=== PATIENT | male | born 1985 | race Caucasian/White ===

== ENCOUNTER → 2025-06-20 22:36 | Outpatient (BNV) | payer OTHER, SELFPAY | PROVIDERS: Visit Provider Radiology Diagnostic Radiology | DX: R07.9 Chest pain, unspecified (principal); R06.09 Other forms of dyspnea; M54.9 Dorsalgia, unspecified; M25.512 Pain in left shoulder; S49.92XA Unspecified injury of left shoulder and upper arm, initial encounter | CPT/HCPCS: 71046; 73030 ==

== ENCOUNTER 2025-06-20 23:05 | Emergency (ER) | payer OTHER, SELFPAY ==
--- NOTE | ~2025-06-20 | XR_ITS ---
CLINICAL HISTORY: pain unknown injury started 2 weeks ago 3 view left shoulder Comparison: None provided Findings: Bones intact. No dislocations. No erosions. No radiopaque foreign body. IMPRESSION: 1. No acute findings This document has been electronically signed by: Stephanie Matute MD on 06/21/2025 00:14:58
--- NOTE | ~2025-06-20 | XR_ITS ---
CLINICAL HISTORY: chest and back pain, intermittent GUERRERO 2 view chest x-ray Comparison: None provided Findings: No consolidation or effusion. Heart size is normal. No acute fracture. IMPRESSION: 1. No acute findings. This document has been electronically signed by: Stephanie Matute MD on 06/21/2025 00:15:02
[2025-06-20 23:13] VITALS: BP 133/94; PULSE 89; RESP 18; TEMP 36.7; O2SAT 97
[2025-06-20 23:47] LABS: Hematocrit 45.0 % (42.0-52.0); Hemoglobin 16.3 g/dl (14.0-18.0); Mean Corpuscular HGB Conc 36.2 g/dl (31.0-36.0); Mean Corpuscular Hemoglobin 32.2 pg (27.0-33.0); Mean Corpuscular Volume 88.9 fL (80.0-98.0); NRBC Abs Auto 0.000 X10*3/uL (0.0-0.012); NRBC Pct Auto 0.0 /100WBC (0.0-0.2); Platelet Count 264 X10*3/uL (160-400); Red Blood Count 5.06 X10*6/uL (4.60-5.80); White Blood Count 10.5 X10*3/uL (4.8-10.8)
[2025-06-21 00:03] LABS: Alanine Aminotransferase 38 U/L (0-40); Albumin Level 4.9 g/dL (3.5-5.0); Alkaline Phosphatase 73 U/L (39-117); Anion Gap 14 (12-20); Aspartate Amino Transferase 34 U/L (5-37); Blood Urea Nitrogen 19 mg/dL (9-16); Calcium 10.0 mg/dL (8.4-10.2); Carbon Dioxide 30 mmol/L (22-29); Chloride 103 mmol/L (96-108); Creatinine Clr Calc Pharmacy 62.6; Estimated Glomerular Filt Rate 46; Potassium 4.6 mmol/L (3.3-5.1); Sodium 142 mmol/L (135-145); Total Protein 8.1 g/dL (6.5-8.0)
[2025-06-21 00:11] LABS: Troponin-I High Sensitivity < 2.7 ng/L (<3.5-35.0)
--- NOTE | 2025-06-21 01:28 | ED_ITS ---
HPI - General Adult General Chief complaint: Extremity Problem Stated complaint: left arm numbness Time Seen by Provider: 06/21/25 00:46 Source: patient Mode of arrival: ambulatory Limitations: no limitations History of Present Illness ED Provider: Matheus BARRON HPI narrative: The patient is a 39-year-old male presenting to the ED for evaluation of left shoulder pain which began gradually and atraumatically approximately 3-4 weeks ago. Patient reports pain originates in his left paraspinal muscles and radiates across his shoulder blade into his shoulder in now over the past few days has been radiating into his left arm with left arm tingling paresthesias. The patient reports pain occasionally becomes sharp and radiates to his chest and then resolves without intervention. The patient denies associated cough, shortness of breath, isolated chest pain, pleurisy, nausea, vomiting, diaphoresis, recent sick contacts, or recent trauma. 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 The patient has not attempted any home medications for his symptoms. Related Data Previous Rx's ?Medication ?Instructions ?Recorded acetaminophen 500 mg capsule 1,000 mg (2 x 500 mg) PO .q8 PRN 06/21/25 fever or pain #30 caps cyclobenzaprine 10 mg tablet 10 mg PO BEDTIME PRN musc le spasm 06/21/25 #7 tabs ibuprofen 600 mg tablet 600 mg PO Q8H PRN fever or p ain 06/21/25 #30 tabs Allergies Allergy/AdvReac Type Severity Reaction Status Date / Time No Known Allergies Allergy Verified 06/20/25 23:15 Review of Systems 2 Review of Systems: Yes all other systems are reviewed and are negative PMFSH Social History Social History Alcohol intake: current Smoked in Last 30 Days: Yes Use of substances other than those prescribed or required for medical reasons: Yes Physical Exam ED Vital Signs: Vital Signs - 24 hr 06/20/25 23:13 Temperature 98.1 F Pulse Rate 89 Respiratory Rate 18 Blood Pressure 133/94 H Pulse Oximetry 97 Oxygen Delivery Method Room Air BMI result Body Mass Index 30.0 CONSTITUTIONAL: The patient appears comfortable, non-toxic, well nourished and in no acute distress. Vital signs as documented. HEAD: Atraumatic, normocephalic. EYES: EOMs grossly intact, pupils equal, conjunctiva clear, no exudate. ENT: Nares patent, no discharge. Airway patent, no audible stridor, visible mucosa is pink and moist without noted lesions. NECK: Trachea is midline, no obvious masses or gross abnormalities. CHEST: Symmetric movement, normal appearance. LUNGS: LS present and CTAB, no w/r/r. Non-labored work of breathing. CARDIAC: Regular Rhythm, S1/S2 appreciated, no murmurs, rubs or gallops. ABDOMEN: Abdomen soft and non-tender x4 quadrants, no palpable masses or organomegaly. : Deferred. BACK: No midline spinous tenderness, no tenderness elicited with palpation of the left scapula. EXTREMITIES: Normal tone, moves all extremities spontaneously without reported pain. Patient reports painful range of motion however is noted to lie comfortably with his arms behind his back and use the affected extremity to get up from the exam stretcher without evidence of discomfort. Welt Wheeler strength 5/5 bilaterally, pain is fully reproduced with pushing against resistance with the upper extremities. Distal CSM is intact, 2+ radial pulse in the affected extremity. No obvious acute injury or deformity noted. NEURO: Alert and oriented x3, CN II-XII appear grossly intact. Cerebellar Functioning grossly intact. No obvious sensory or motor deficits. Speech clear and appropriate. PSYCH: normal affect, appropriate eye contact, fluid speech, with appropriate response to questioning. No reported suicidality or homicidality. SKIN: Warm, dry, color appropriate, normal turgor. No rashes noted. Medical Decision Making Medical Decision Making MDM Narrative: 1:40 AM 06/21/2025 (Teresa BARRON): The patient is a 39-year-old male presenting to the ED for evaluation of left paraspinal thoracic pain radiating through his left scapula and into his left arm for the past 3-4 weeks which is exacerbated by movement and pushing against resistance. The patient's pain occasionally radiates sharply into the chest and then resolves without incident, patient denies any chest pain in the ED. the patient reports yesterday he began experiencing tingling paresthesias of the left arm prompting ED evaluation today. The patient's exam is reassuring, pain is fully reproduced with pushing against resistance with the upper extremities, there is no bony tenderness, no overlying erythema, ecchymosis, or other evidence of injury. The patient's laboratory evaluation is reassuring, troponin negative, no leukocytosis, anemia, electrolyte abnormality, or significant LUIS. The patient's shoulder and chest x-rays are unremarkable. The patient is likely suffering from cervical radiculopathy versus musculoskeletal strain of the left trapezius muscle. Patient will be treated with anti-inflammatories, topical lidocaine patch, and Flexeril. Patient will be discharged with instructions to follow up with PCP for re-evaluation. Patient has been educated on reasons to return to the ED. Admission/Observation Consideration of admission/observation: Escalation of care including admission/observation considered Lab Data MDM Lab Attestation statement: I reviewed the patient's lab results. 06/20/25 23:41 06/20/25 23:41 Labs: Lab Results 06/20/25 Range/Units 23:41 WBC 10.5 (4.8-10.8) X10*3/uL RBC 5.06 (4.60-5.80) X10*6/uL Hgb 16.3 (14.0-18.0) g/dl Hct 45.0 (42.0-52.0) % MCV 88.9 (80.0-98.0) fL MCH 32.2 (27.0-33.0) pg MCHC 36.2 H (31.0-36.0) g/dl RDW 13.1 (11.0-16.0) % Plt Count 264 (160-400) X10*3/uL MPV 9.4 (9.4-12.4) fL Absolute Nucleated RBC 0.000 (0.0-0.012) X10*3/uL Nucleated RBC % (auto) 0.0 (0.0-0.2) /100WBC Sodium 142 (135-145) mmol/L Potassium 4.6 (3.3-5.1) mmol/L Chloride 103 (96-108) mmol/L Carbon Dioxide 30 H (22-29) mmol/L Anion Gap 14 (12-20) BUN 19 H (9-16) mg/dL Creatinine 1.70 H (0.5-1.4) mg/dL Estim Creat Clear Calc 62.6 Estimated GFR 46 Random Glucose 78 (60-115) mg/dL Calcium 10.0 (8.4-10.2) mg/dL Total Bilirubin 0.5 (0.0-1.0) mg/dL AST 34 (5-37) U/L ALT 38 (0-40) U/L Alkaline Phosphatase 73 (39-117) U/L Troponin I High Sens < 2.7 (<3.5-35.0) ng/L Total Protein 8.1 H (6.5-8.0) g/dL Albumin 4.9 (3.5-5.0) g/dL Radiology Impression Discussion of test interpretation with radiology: I have reviewed the radiologist's reading. Radiologist Impression: 2 view chest x-ray Comparison: None provided Findings: No consolidation or effusion. Heart size is normal. No acute fracture. IMPRESSION: 1. No acute findings. This document has been electronically signed by: Stephanie Matute MD on 06/21/2025 00:15:02 3 view left shoulder Comparison: None provided Findings: Bones intact. No dislocations. No erosions. No radiopaque foreign body. IMPRESSION: 1. No acute findings This document has been electronically signed by: Stephanie Matute MD on 06/21/2025 00:14:58 External Record Review External record reviewed: Outpatient record Prescription Management I considered prescription management with: Pain Medication Discharge Plan Discharge Clinical Impression: Musculoskeletal strain, Radiculopathy affecting upper extremity Patient Disposition: Home, Self-Care Instructions: Muscle Strain (ED), Cervical Radiculopathy (ED), Musculoskeletal Pain (ED), Back Pain (ED) Additional Instructions: Thank you for choosing [facility]'s Emergency Department for your care today. Thankfully your laboratory evaluation, x-rays, and exam today are all reassuring and showed no evidence of any acute emergent process requiring admission to the hospital or continued ED observation. It is safe to discharge you home. Your pain today may be related to a strain of your thoracic muscles with subsequent inflammation and/or compression of nerves causing tingling numbness in your left arm. Your pain has been treated with anti-inflammatories, muscle relaxers, and topical analgesics. You should take alternating (staggered) doses of ibuprofen 600mg and Tylenol 1000mg every 4 hours as needed for any additional pain. Please rest the injured area, and apply ice for 20 minutes every hour. Please stay well hydrated and get plenty of rest. As a part of your care plan, you have also been prescribed a muscle relaxer. Please take this medication only for severe pain or spasm that is not relieved by ibuprofen and/or Tylenol. Muscle relaxer medications can carry high risk of unintentional addiction and abuse. Take this medication only as directed and only if absolutely necessary. This medicine can make you drowsy, you are not allowed to drive, operate heavy machinery, or be the sole care provider for children while taking this medication. We have treated you with a lidocaine patch, if you find this provides you significant relief additional patches can be purchased at any local pharmacy without a prescription. Please follow up with your primary care physician for re-evaluation, additional management of your symptoms, and continued preventative care. If you do not have a primary care physician, please call the [facility] at [phone] to establish a new primary care physician. While waiting to establish your new primary care physician, you can call our Walk[facility]in [facility] at [phone] for non-emergency needs. Please return to the emergency department if you develop a severe or sudden change in your symptoms, a fever over 100.4 that does not improve with Tylenol or Ibuprofen, recurrent vomiting, or any other new or worsening symptoms or concerns. Prescriptions: New ibuprofen 600 mg tablet 600 mg PO Q8H PRN (Reason: fever or pain) Qty: 30 0RF acetaminophen 500 mg capsule 1,000 mg PO .q8 PRN (Reason: fever or pain) Qty: 30 0RF cyclobenzaprine 10 mg tablet 10 mg PO BEDTIME PRN (Reason: muscle spasm) Qty: 7 0RF Referrals: Physician,Unknown J [Primary Care Provider, Medical] Clinical Impression: Radiculopathy affecting upper extremity; Musculoskeletal strain
[2025-06-21] MEDS: Lidocaine 4 % Patch ADH..PATCH 1 PATCH TRANSDERMA (01:49)
[2025-06-21 01:58] VITALS: BP 116/74; PULSE 76; RESP 16; TEMP 36.4; O2SAT 94
[2025-06-21 02:09] VITALS: BP 116/74; PULSE 76; RESP 16; TEMP 36.4; O2SAT 94
== END 2025-06-21 02:11 | disposition home or self-care (01) ==
LOC: HO.ED 06-21 02:04
PROVIDERS: Emergency Provider Emergency Medicine
DX: M79.10 Myalgia, unspecified site (principal); R20.0 Anesthesia of skin; M25.512 Pain in left shoulder; M54.50 Low back pain, unspecified; R07.89 Other chest pain
CPT/HCPCS: 36415; 71046; 73030; 80053; 84484; 85027; 99283; 99284